=== PATIENT | male | born 1965 | race Caucasian/White ===

== ENCOUNTER 2017-01-28 12:08 | Day surgery (SDC) | payer OTHER ==
[~2017-01-28] VITALS: Ht 175.3 cm; Wt 106.4 kg
[2017-01-28] MEDS ORDERED: OMEPRAZOLE PO (13:11)
[2017-01-28] MEDS ORDERED: AMLODIPINE PO (13:11)
[2017-01-28] MEDS ORDERED: METOPROLOL PO (13:11)
[2017-01-28 13:18] VITALS: BP 142/91; PULSE 82; RESP 18
[2017-01-28 13:19] VITALS: Ht 175.3 cm; Wt 106.4 kg
[2017-01-28] MEDS ORDERED: PROPOFOL 40 ML ONE (13:21)
[2017-01-28] MEDS ORDERED: PROPOFOL 20 ML ONE ×3 (14:07)
--- NOTE | 2017-01-28 14:08 | OPPN ---
Date/Time of Note Date/Time of Note DATE: 01/28/17 TIME: 14:05 Operative Report Preoperative Diagnosis Abdominal pain Chronic heartburn Screening Postoperative Diagnosis Gastric esophageal reflux disease Gastritis with erosions Colonoscopy all the way to the cecum Cecal polyp was biopsied Internal hemorrhoids Operation/Procedure Performed Esophagogastroduodenoscopy and biopsy Colonoscopy and biopsy Surgeon see signature line pharmacy sales assistant None Anesthesia: MAC Estimated blood loss: none Transfusion Required none Specimen Gastric mucosal biopsy Biopsy cecal polyp Grafts/Implants none Complications none ARIELLE GRULLON MD Jan 28, 2017 14:08
--- NOTE | 2017-01-28 14:08 | OPPN ---
Date/Time of Note Date/Time of Note DATE: 01/28/17 TIME: 14:05 Operative Report Preoperative Diagnosis Abdominal pain Chronic heartburn Screening Postoperative Diagnosis Gastric esophageal reflux disease Gastritis with erosions Colonoscopy all the way to the cecum Cecal polyp was biopsied Internal hemorrhoids Operation/Procedure Performed Esophagogastroduodenoscopy and biopsy Colonoscopy and biopsy Surgeon see signature line teachers assistant None Anesthesia: MAC Estimated blood loss: none Transfusion Required none Specimen Gastric mucosal biopsy Biopsy cecal polyp Grafts/Implants none Complications none ARIELLE GRULLON MD Jan 28, 2017 14:08
--- NOTE | 2017-01-28 14:08 | OPPN ---
Date/Time of Note Date/Time of Note DATE: 01/28/17 TIME: 14:05 Operative Report Preoperative Diagnosis Abdominal pain Chronic heartburn Screening Postoperative Diagnosis Gastric esophageal reflux disease Gastritis with erosions Colonoscopy all the way to the cecum Cecal polyp was biopsied Internal hemorrhoids Operation/Procedure Performed Esophagogastroduodenoscopy and biopsy Colonoscopy and biopsy Surgeon see signature line marketing assistant None Anesthesia: MAC Estimated blood loss: none Transfusion Required none Specimen Gastric mucosal biopsy Biopsy cecal polyp Grafts/Implants none Complications none ARIELLE GRULLON MD Jan 28, 2017 14:08
[2017-01-28 14:41] VITALS: BP 114/74; RESP 14
--- NOTE | 2017-01-28 15:03 | GILP ---
DATE OF PROCEDURE: NAME OF PROCEDURES: 1. Esophagogastroduodenoscopy and biopsy. 2. Colonoscopy and biopsy. SURGEON: Arielle Moody MD PREOPERATIVE DIAGNOSES: 1. Abdominal pain. 2. Chronic heartburn. 3. Screening colonoscopy. POSTOPERATIVE DIAGNOSES: 1. Gastroesophageal reflux disease. 2. Gastritis with erosions. 3. Gastric mucosal biopsies were taken for Helicobacter pylori test. 4. Colonoscopy all the way to the cecum. 5. Polypoid lesion in the cecum and biopsies were taken for histopathology. 6. Internal hemorrhoids. INDICATION FOR THE PROCEDURE: Mr. Bright Vizcarra is a 51-year-old male patient who had upper abdomi nal pain and chronic heartburn not responding to therapy. Patient also needed a screening colonosco py. The procedures and possible complications are well explained to the patient, he understood and conse nted to the procedure. DESCRIPTION OF PROCEDURE: Under the influence of anesthesia, the gastroscope was carefully introduc ed into the esophagus and under direct vision, it was advanced to the stomach and through the pyloru s into the duodenal bulb and descending duodenum. FINDINGS: ESOPHAGUS: The patient had gastroesophageal reflux disease. STOMACH: He had gastritis with erosions. Gastric mucosal biopsies were taken for H. pylori test. DUODENUM: Normal. The colonoscope was carefully introduced in the rectum and under direct vision, it was advanced all the way to the cecum. FINDINGS: The patient had a polypoid lesion in the cecum which could be a polyp or inverted appendi x. Biopsies were taken for histopathology. He was noted to have internal hemorrhoids. He tolerated the procedure very well and there was no complication from the procedure. At the end o f the procedure, he was awake with stable vital signs and he was discharged home to the care of his family. IMPRESSION: Please see postoperative diagnoses. PLAN: 1. Continue omeprazole. 2. Add Zantac 300 mg p.o. at bedtime. 3. Await histopathology reports. 4. The timing for the next colonoscopy will be decided depending upon the biopsy report. Dictated By: ARIELLE YBARRA/YESI Conf#: [id number] DID#: [id number]
== END 2017-01-28 15:35 | disposition home or self-care (01) ==
LOC: GIL 12:08
PROVIDERS: ATTEND Internal Medicine Gastroenterology
DX: Z12.11 Encounter for screening for malignant neoplasm of colon (principal); K52.9 Noninfective gastroenteritis and colitis, unspecified; K64.8 Other hemorrhoids; K29.70 Gastritis, unspecified, without bleeding; K21.9 Gastro-esophageal reflux disease without esophagitis; I10 Essential (primary) hypertension
CPT/HCPCS: 88305